=== PATIENT | male | born 1990 | race Caucasian/White ===

== ENCOUNTER 2017-01-02 17:25 | Emergency (ER) | payer BC, OTHER ==
[2017-01-02 18:11] VITALS: BP 127/72
[2017-01-02] MEDS ORDERED: Ibuprofen TAB* 400 MG PO ONE (19:38)
--- NOTE | 2017-01-02 20:06 | UC ---
Shoulder Pain HPI - HPI Summary HPI Summary: The patient comes in today for: 1. Right shoulder pain: Onset: 4 hours ago. Palliative/provocative: Arm movement makes it worse. Quality: Ache Region: Right superior, posterior shoulder, superior to the scapula. Severity: 6/10 Time: Constant. 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 He jumped to block the ball, and another player "knocked the feet from out under me" and he fell laterally striking his right posterior/lateral shoulder. He states that it hurt when he fell, but it hurts more now. Previous treatment: None. Numbness: None. 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 and his arms got tired "being just held out in front of me." * - History of Current Complaint Chief Complaint: UCUpperExtremity Stated Complaint: SHOULDER INJURY Time Seen by Provider: 01/02/17 19:37 Hx Obtained From: Patient - Allergies/Home Medications Allergies/Adverse Reactions: Allergies Allergy/AdvReac Type Severity Reaction Status Date / Time No Known Allergies Allergy Verified 01/02/17 18:11 PMH/Surg Hx/FS Hx/Imm Hx Previously Healthy: Yes Endocrine History Of: Denies: Diabetes, Thyroid Disease, Hyperthyroidism, Hypothyroidism, Dyslipidemia Cardiovascular History Of: Denies: Cardiac Disorders, Hypertension, Pacemaker/ICD, Myocardial Infarction , Congestive Heart Failure, Atrial Fibrillation, Deep Vein Thrombosis, Bleeding Disorders Respiratory History Of: Reports: Asthma - Only as a child. Denies: COPD, Bronchitis, Pneumonia, Pulmonary Embolism GI/ History Of: Denies: Gastroesophageal Reflux, Ulcer, Gastrointestinal Bleed, Gall Bladder Disease, Kidney Stones, Diverticulitis, Renal Disease, Urosepsis Neurological History Of: Denies: TIA, CVA, Dementia, Seizures, Migraine Psychological History Of: Denies: Anxiety, Depression, Bipolar Disorder, Schizophrenia, Post Traumatic Stress Disorder Cancer History Of: Denies: Lung Cancer, Colorectal Cancer, Breast Cancer, Prostate Cancer, Cervical Cancer Other History Of: Negative For: HIV, Hepatitis B, Hepatitis C, Anticoagulant Therapy - Surgical History Surgical History: None - Family History Known Family History: Positive: Diabetes Negative: Unknown, Cardiac Disease, Hypertension - Social History Occupation: Employed Full-time Alcohol Use: Rare Substance Use Type: None Smoking Status (MU): Never Smoked Tobacco Have You Smoked in the Last Year: No - Immunization History Most Recent Influenza Vaccination: Not the Season Review of Systems Constitutional: Negative Skin: Negative Eyes: Negative ENT: Negative Respiratory: Negative Cardiovascular: Negative Gastrointestinal: Negative Genitourinary: Negative Musculoskeletal: Arthralgia, Myalgia All Other Systems Reviewed And Are Negative: Yes Physical Exam Triage Information Reviewed: Yes Appearance: Well-Appearing, No Pain Distress, Well-Nourished Vital Signs: Initial Vital Signs Temp 98.7 F 01/02/17 18:07 Pulse 78 01/02/17 18:07 Resp 20 01/02/17 18:07 BP 127/72 01/02/17 18:07 Pulse Ox 100 01/02/17 18:07 Vital Signs Reviewed: Yes Eyes: Positive: Conjunctiva Clear. Negative: Discharge ENT: Positive: Hearing grossly normal. Negative: Pharyngeal erythema, Nasal congestion, Nasal drainage, TM bulging, TM dull, TM red, Tonsillar swelling, Tonsillar exudate Dental: Negative: Gross Decay/Caries @, Dental Fracture @ Neck: Positive: Supple, Nontender, No Lymphadenopathy. Negative: Nuchal Rigidity Respiratory: Positive: Lungs clear, No respiratory distress, No accessory muscle use. Negative: Crackles, Wheezing Cardiovascular: Positive: RRR, No Murmur Abdomen Description: Positive: Nontender, No Organomegaly, Soft. Negative: Distended, Guarding Musculoskeletal: Positive: Strength Intact, No Edema, Other: - Right shoulder: There is no ecchymosis. There is tenderness to palpation of the supraspinatus posteriorly. There is tenderness to the anterior AC joint. There is reduction in the abdution laterally and anteriorly. Muscular strength is normal in hand tactical debriefer officer, and with "OK" sign of the thumbs, pincher grasp, finger grasp and hand tactical debriefer officer manuvers. Neurological: Positive: Alert, Muscle Tone Normal Psychological: Positive: Age Appropriate Behavior, Consolable Skin: Negative: rashes, breakdown Diagnostics - Radiology No standard instances Xray Interpretation: No Acute Changes Radiology Interpretation Completed By: Radiologist Shoulder Course/Dx - Differential Dx/Diagnosis Provider Diagnoses: Right shoulder contusion. Right shoulder strain. Discharge - Discharge Plan Condition: Stable Disposition: HOME Patient Education Materials: Contusion in Adults (ED), Shoulder Sprain (ED) Referrals: [facility] [Outside] No Primary Care Phys,NOPCP [Primary Care Provider] - 1 Week (Please see your primary care provider in about three days to see how well you are doing. If you don't have a primary care provider, please contact the physician referral service. If you can't get in timely, please you may come back to see us until you can. If you get worse, please be seen sooner by us or the ER.)
--- NOTE | 2017-01-02 20:14 | RAD ---
INDICATION: Right shoulder pain COMPARISON: None TECHNIQUE: Routine frontal and Y views were obtained. FINDINGS: The bony structures, joint spaces, and soft tissues are normal for age. IMPRESSION: NEGATIVE EXAMINATION
== END 2017-01-02 20:42 | disposition home or self-care (01) ==
LOC: UCEAST 17:25
DX: M25.511 Pain in right shoulder (principal); S43.401A Unspecified sprain of right shoulder joint, initial encounter; W03.XXXA Other fall on same level due to collision with another person, initial encounter; Y93.67 Activity, basketball; Y92.39 Other specified sports and athletic area as the place of occurrence of the external cause
CPT/HCPCS: 99212; A9270-GY; G0463

== ENCOUNTER 2017-01-04 12:27 | Emergency (ER) | payer SELFPAY ==
[2017-01-04 12:48] VITALS: BP 129/70
--- NOTE | 2017-01-04 13:01 | UC ---
Shoulder Pain HPI - HPI Summary HPI Summary: Fell on R shoulder 2 days ago at work, was taken out but now wants to return to work. Is feeling much better and can lift arm over his head. - History of Current Complaint Chief Complaint: UCUpperExtremity Stated Complaint: RECHECK SHOULDER INJURY Time Seen by Provider: 01/04/17 12:51 Hx Obtained From: Patient Onset/Duration: Sudden Onset Timing: Constant Severity Initially: Moderate Severity Currently: Mild Character: Aching Aggravating Factor(s): Movement, Lifting Alleviating Factor(s): Rest Related History: Occupational Injury - Allergies/Home Medications Allergies/Adverse Reactions: Allergies Allergy/AdvReac Type Severity Reaction Status Date / Time No Known Allergies Allergy Verified 01/02/17 18:11 PMH/Surg Hx/FS Hx/Imm Hx Endocrine History Of: Denies: Diabetes, Thyroid Disease, Hyperthyroidism, Hypothyroidism, Dyslipidemia Cardiovascular History Of: Denies: Cardiac Disorders, Hypertension, Pacemaker/ICD, Myocardial Infarction , Congestive Heart Failure, Atrial Fibrillation, Deep Vein Thrombosis, Bleeding Disorders Respiratory History Of: Reports: Asthma - Only as a child. Denies: COPD, Bronchitis, Pneumonia, Pulmonary Embolism GI/ History Of: Denies: Gastroesophageal Reflux, Ulcer, Gastrointestinal Bleed, Gall Bladder Disease, Kidney Stones, Diverticulitis, Renal Disease, Urosepsis Neurological History Of: Denies: TIA, CVA, Dementia, Seizures, Migraine Psychological History Of: Denies: Anxiety, Depression, Bipolar Disorder, Schizophrenia, Post Traumatic Stress Disorder Cancer History Of: Denies: Lung Cancer, Colorectal Cancer, Breast Cancer, Prostate Cancer, Cervical Cancer Other History Of: Negative For: HIV, Hepatitis B, Hepatitis C, Anticoagulant Therapy - Surgical History Surgical History: None Surgery Procedure, Year, and Place: none - Family History Known Family History: Positive: Diabetes Negative: Unknown, Cardiac Disease, Hypertension - Social History Occupation: Employed Part-time Alcohol Use: Rare Substance Use Type: None Smoking Status (MU): Never Smoked Tobacco Have You Smoked in the Last Year: No - Immunization History Most Recent Influenza Vaccination: Not the 2014/2015 Season Review of Systems Constitutional: Negative Skin: Negative Eyes: Negative ENT: Negative Respiratory: Negative Cardiovascular: Negative Gastrointestinal: Negative Genitourinary: Negative Motor: Negative Neurovascular: Negative Musculoskeletal: Arthralgia Neurological: Negative Psychological: Negative All Other Systems Reviewed And Are Negative: Yes Physical Exam Triage Information Reviewed: Yes Appearance: Well-Appearing, No Pain Distress, Well-Nourished Vital Signs: Initial Vital Signs Temp 97.8 F 01/04/17 12:43 Pulse 73 01/04/17 12:43 Resp 16 01/04/17 12:43 BP 129/70 01/04/17 12:43 Pulse Ox 100 01/04/17 12:43 Vital Signs Reviewed: Yes Eye Exam: Normal Eyes: Positive: Conjunctiva Clear ENT Exam: Normal ENT: Positive: Normal ENT inspection, Hearing grossly normal, Pharynx normal, TMs normal Dental Exam: Normal Neck exam: Normal Neck: Positive: Supple, Nontender, No Lymphadenopathy Respiratory Exam: Normal Respiratory: Positive: Chest non-tender, Lungs clear, Normal breath sounds, No respiratory distress, No accessory muscle use Cardiovascular Exam: Normal Cardiovascular: Positive: RRR, No Murmur Musculoskeletal Exam: Normal Musculoskeletal: Positive: Strength Intact, ROM Intact Neurological Exam: Normal Neurological: Positive: Alert Psychological Exam: Normal Skin Exam: Normal Shoulder Course/Dx - Differential Dx/Diagnosis Provider Diagnoses: R shoulder strain resolving Discharge - Discharge Plan Condition: Stable Disposition: HOME Patient Education Materials: Shoulder Sprain (ED) Forms: *Work Release Referrals: No Primary Care Phys,NOPCP [Primary Care Provider] - Additional Instructions: Call or return if symptoms worsen.
== END 2017-01-04 13:06 | disposition home or self-care (01) ==
LOC: UCEAST 12:27
DX: S43.401A Unspecified sprain of right shoulder joint, initial encounter (principal); W19.XXXA Unspecified fall, initial encounter; Y92.9 Unspecified place or not applicable; R03.0 Elevated blood-pressure reading, without diagnosis of hypertension
CPT/HCPCS: 99211; G0463

== ENCOUNTER 2017-11-27 15:03 | Emergency (ER) | payer SELFPAY ==
[2017-11-27 16:04] VITALS: BP 132/77
--- NOTE | 2017-11-27 17:24 | UC ---
Laceration HPI - HPI Summary HPI Summary: Accidentally collided with another player in basketball today, lac below R eyebrow. Denies vomiting, dizziness, or LOC. Pt would like sutures to the wound. - History Of Current Complaint Chief Complaint: UCLaceration Stated Complaint: EYELID LAC Hx Obtained From: Patient Laceration Location: Face Mechanism Of Injury: Blunt Trauma Onset/Duration: Sudden Onset Severity: Mild Aggravating Factors: Nothing - Allergies/Home Medications Allergies/Adverse Reactions: Allergies Allergy/AdvReac Type Severity Reaction Status Date / Time No Known Allergies Allergy Verified 11/27/17 16:04 Home Medications: Home Medications NK [No Home Medications Reported] 11/27/17 [History Confirmed 11/27/17] PMH/Surg Hx/FS Hx/Imm Hx Previously Healthy: Yes Other History Of: Negative For: HIV, Hepatitis B, Hepatitis C, Anticoagulant Therapy - Surgical History Surgical History: None Surgery Procedure, Year, and Place: none - Family History Known Family History: Positive: Diabetes Negative: Unknown, Cardiac Disease, Hypertension - Social History Alcohol Use: Rare Substance Use Type: None Smoking Status (MU): Never Smoked Tobacco Have You Smoked in the Last Year: No - Immunization History Most Recent Influenza Vaccination: Not the Season Review of Systems Constitutional: Negative Skin: Other - R eyebrow lac Eyes: Negative ENT: Negative Respiratory: Negative Cardiovascular: Negative Gastrointestinal: Negative Genitourinary: Negative Motor: Negative Neurovascular: Negative Musculoskeletal: Negative Neurological: Negative Psychological: Negative Is Patient Immunocompromised?: No All Other Systems Reviewed And Are Negative: Yes Physical Exam Triage Information Reviewed: Yes Appearance: Well-Appearing, No Pain Distress, Well-Nourished Vital Signs: Initial Vital Signs Temp 98.1 F 11/27/17 16:01 Pulse 54 11/27/17 16:01 Resp 18 11/27/17 16:01 BP 132/77 11/27/17 16:01 Pulse Ox 98 11/27/17 16:01 Vital Signs Reviewed: Yes Eye Exam: Normal, Other - PERRL Eyes: Positive: Conjunctiva Clear ENT Exam: Normal ENT: Positive: Normal ENT inspection, Hearing grossly normal, Pharynx normal, TMs normal. Negative: TM bulging, TM dull, TM red Dental Exam: Normal Neck exam: Normal Neck: Positive: Supple, Nontender, No Lymphadenopathy Respiratory Exam: Normal Respiratory: Positive: Chest non-tender, Lungs clear, Normal breath sounds, No respiratory distress, No accessory muscle use Cardiovascular Exam: Normal Cardiovascular: Positive: RRR, No Murmur Musculoskeletal Exam: Normal Musculoskeletal: Positive: Strength Intact, ROM Intact Neurological Exam: Normal Neurological: Positive: Alert Psychological Exam: Normal Skin Exam: Other - 2cm lac to R eyebrow Laceration Repair - Laceration Repair 1 Description: Linear Laceration Size After Repair: Length (cm) - 2, Width (mm) - 0, Depth (mm) - 0 Modified For Repair: No Anesthesia Used: 2.0% Lido - 1mL Cleansing Completed Via Routine Prep: Yes Irrigation With Pressure Irrigation Device: Yes Closure Material: Sutures Closure Method: Single Layer Suture Of: Skin Suture Type: Nylon - #4 Laceration Course/Dx - Differential Dx - Laceration/Wound Provider Diagnoses: R eyebrow laceration repair Discharge - Discharge Plan Condition: Stable Disposition: HOME Patient Education Materials: Facial Laceration (ED) Forms: *Work Release Referrals: No Primary Care Phys,NOPCP [Primary Care Provider] - Additional Instructions: Return for suture removal in 5-6 days. Come back sooner if you suspect a problem.
[2017-11-27] MEDS ORDERED: Lidocaine 2% EPI 1:200000 MPF* 20 ML VIAL INJ ONE (17:28)
[2017-11-27] MEDS ORDERED: Lidocaine 2% PF * 5 ML VIAL ONE (17:38)
== END 2017-11-27 18:01 | disposition home or self-care (01) ==
LOC: UCEAST 15:03
DX: S01.111A Laceration without foreign body of right eyelid and periocular area, initial encounter (principal); W51.XXXA Accidental striking against or bumped into by another person, initial encounter; Y93.67 Activity, basketball; Y92.39 Other specified sports and athletic area as the place of occurrence of the external cause
CPT/HCPCS: 12011; 99211; G0463

== ENCOUNTER 2019-04-26 15:18 | Emergency (ER) | payer BC ==
--- OUTSIDE RECORDS SUMMARY | 2019-04-26 15:27 | XMS REPORT | Continuity of Care Document ---
:1990 External Reference #:[id number] Author Name Yevgeniy Herrera D.O. Address [address] [facility] [place] [address] Care Team Providers Name Role Phone HCP/LW on file Primary Care Physician Unavailable Payers Date Identification Numbers Payment Provider Subscriber Effective: Policy Number: [id number] [employer] Ind/Ppo/Hmo/Pos Remigio Barrett 2018 PayID: [id number] [address] [address] [place] [address] Family History Date Family Member(s) Observation Comments General Alcoholism General Asthma General Diabetes, Nos General Emotional Problems General Mental Illness Social History Type Date Description Comments Sex Unknown Education College BS Marital Status Single Lives With Girlfriend Diet Healthy, Well Balanced 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 Working Hand Dominance Right-handed Abuse No history of abuse Tobacco Use Start: Unknown Former Cigarette End: Smoker ETOH Use Never used alcohol Stopped using as contributed to "dark thoughts." Tobacco Use Start: Unknown Patient is a former End: Unknown smoker Recreational Drug Use Current Drug User infreq use of marjuana Smoking Status Reviewed: 10/26/18 Patient is a former smoker Enjoy Exercising Enjoys exercising Exercise Type/Frequency Exercises regularly Variety of sports, reports freq getting a variety of bumps and bruises Sun Exposure Does not use sunscreen Seat Belt/Car Seat always uses seat belt Guns in Home Yes, Locked Up Currently Active Patient is currently sexually active Allergies, Adverse Reactions, Alerts Description No Known Drug Allergies Medications Active Medications SIG Qnty Indications Ordering Provider Date Amphetamine-Dextroamp 2 by mouth in 90tabs F90.0 Freddy Larios, 2018 hetamine the morning, M.D. 5mg Tablets take before work, and 1 mid to later afternoon, for focus/concentrat ion Alprazolam XR 1 tab every 14tabs F33.1 Freddy Larios 10/26/2018 0.5mg night at M.DJasmin Tablets ER 24HR bedtime, prn History Medications Amphetamine-[facility]extroamphetamine 1 tab po bid [facility] - 7.5mg Tablets for adhd Sharona Hayes 01/29/2019 Sertraline HCL 1 tablet daily 60tabs F33.1 Ric, 10/23/2018 - 25mg Tablets in the Sharona Hayes 10/26/2018 morning, for 5 days then 2 per day for anxiety and depression No Active Medications Unknown 09/11/2018 - 09/11/2018 Bupropion HCL ER (SR) start 1 by 60tabs F33.1 Ric, 09/11/2018 - 100mg Tablets ER 12HR mouth in the Sharona Hayes 10/27/2018 mid to later afternoon. Immunizations CPT Code Status Date Vaccine Lot # [id number] Refused 09/11/2018 Influenza,Unspecified Vital Signs Date Vital Result Comment 01/29/2019 1:46pm BP Systolic 128 mmHg BP Diastolic 80 mmHg Weight 177.00 lb 11/20/2018 10:37am BP Systolic 114 mmHg BP Diastolic 68 mmHg Weight 176.00 lb 10/26/2018 1:53pm BP Systolic 142 mmHg BP Diastolic 86 mmHg 10/23/2018 10:30am BP Systolic 112 mmHg BP Diastolic 68 mmHg Weight 176.00 lb 09/25/2018 9:02am BP Systolic 126 mmHg BP Diastolic 60 mmHg Weight 180.00 lb w/shoes 09/11/2018 9:39am BP Systolic 122 mmHg BP Diastolic 70 mmHg Weight 177.50 lb 07/31/2018 11:17am BP Systolic 108 mmHg BP Diastolic 70 mmHg Heart Rate 64 /min O2 % BldC Oximetry 97 % Height 74.25 inches 6'2.25" Weight 172.00 lb BMI (Body Mass Index) 21.9 kg/m2 Results Test Date Facility Test Result H/L Range Note [facility] Negative 1, 2 finding [phone] Pylori Antigen- Stool CBC Auto Diff 07/31/2018 [facility] White Blood 6.1 10^3/uL N 3.5- 10.8 [phone] Count Red Blood Count 5.04 10^6/uL N 4.00-5.40 Hemoglobin 15.0 g/dL N 14.0-18.0 Hematocrit 44 % N 42-52 Mean Corpuscular Volume 88 fL N 80-94 Mean Corpuscular Hemoglobin 30 pg N 27-31 Mean Corpuscular HGB Conc 34 g/dL N 31-36 Red Cell Distribution Width 13 % N 10.5-15 Platelet Count 232 10^3/uL N 150-450 Mean Platelet Volume 8.0 um3 N 7.4-10.4 Abs Neutrophils 3.5 10^3/uL N 1.5-7.7 Abs Lymphocytes 1.9 10^3/uL N 1.0-4.8 Abs Monocytes 0.5 10^3/uL N 0-0.8 Abs Eosinophils 0.2 10^3/uL N 0-0.6 Abs Basophils 0 10^3/uL N 0-0.2 Abs Nucleated RBC 0 10^3/uL Granulocyte % 56.9 % N 38-83 Lymphocyte % 31.9 % N 25-47 Monocyte % 7.9 % High 0-7 Eosinophil % 2.9 % N 0-6 Basophil % 0.4 % N 0-2 Nucleated Red Blood Cells % 0.1 Comp Metabolic Panel 07/31/2018 [facility] Sodium 139 mmol/L N 135- 145 [phone] Chloride 104 mmol/L N 101-111 Co2 Carbon Dioxide 31 mmol/L N 22-32 Glucose 89 mg/dL N 70-100 Blood Urea Nitrogen 13 mg/dL N 6-24 Creatinine 0.89 mg/dL N 0.67-1.17 BUN/Creatinine Ratio 14.6 N 8-20 Calcium 10.0 mg/dL N 8.6-10.3 Total Protein 7.1 g/dL N 6.4-8.9 Albumin 4.9 g/dL N 3.2-5.2 Globulin 2.2 g/dL N 2-4 Albumin/Globulin Ratio 2.2 N 1-3 Total Bilirubin 0.50 mg/dL N 0.2-1.0 Alkaline Phosphatase 75 U/L N 34-104 Alt 27 U/L N 7-52 Egfr Non- 103.3 >60 Egfr 125.0 >60 3 Potassium TNP mmol/L 3.5-5.0 4 Anion Gap 4 mmol/L N 2-11 Ast TNP U/L 13-39 5 Laboratory test finding 07/31/2018 [facility] T3 Free 4.30 pg/mL High 2.5-3.9 [phone] Free T4 (Free Thyroxine) 0.88 ng/dL N 0.61-1.12 TSH (Thyroid Stim Horm) 1.24 mcIU/mL N 0.34-5.60 Vitamin B12 686 pg/mL N 180-914 6 Laboratory test finding 07/31/2018 In House Hemoglobin 13.9 Glucose 102 Hemoglobin A1c 5.1 Ua Inhouse 07/31/2018 In House Ua Glucose - 7 Ua Bilirubin - Ua Ketones - Ua Specific Taylor 1.020 Ua Blood - Ua PH 6.0 Ua Protein - Ua Urobilinogen - Ua Nitrite - Ua Leukocytes tr 1 [id number] 2 Test Performed by: [place] [address] 3 Because ethnic data is not always readily available, this report includes an eGFR for both -Americans and non- Americans. The National Kidney Disease Education Program (NKDEP) does not endorse the use of the MDRD equation for patients that are not between the ages of 18 and 70, are , have extremes of body size, muscle mass, or nutritional status, or are non- or non-. According to the National Kidney Foundation, irrespective of diagnosis, the stage of the disease is based on the level of kidney function: Stage Description GFR(mL/min/1.73 m(2)) 1 Kidney damage with normal or decreased GFR 90 2 Kidney damage with mild decrease in GFR 60-89 3 Moderate decrease in GFR 30-59 4 Severe decrease in GFR 15-29 5 Kidney failure <15 (or dialysis) 4 Specimen Hemolyzed. Result may not be valid. Unable to report test result due to hemolysis. 5 Unable to report test result due to hemolysis. 6 Normal Range 180 to 914 Indeterminate Range 145 to 180 Deficient Range <145 7 void, clear, gold Procedures Date Code Description Status 10/26/2018 27141 Electrocardiogram Complete Completed 07/31/2018 91836 Electrocardiogram Complete Completed 07/31/2018 57636 Audiometry Screen, Pure Tone, Air Completed Encounters Type Date Location Provider Dx Diagnosis Office Visit 01/29/2019 Main Office Caty Raygoza F33.1 Major depressive 1:40p disorder, recurrent, moderate F90.0 Attn-defct hyperactivity disorder, predom inattentive type F43.23 Adjustment disorder with mixed anxiety and depressed mood Office Visit 11/20/2018 10:20a Main Office Lona Vazquez F43.23 Adjustment disorder P.A. with mixed anxiety and depressed mood F90.0 Attn-defct hyperactivity disorder, predom inattentive type Office Visit 10/26/2018 1:40p Main Office Lona Vazquez, R42 Dizziness and P.A. giddiness R20.2 Paresthesia of skin R53.1 Weakness F33.1 Major depressive disorder, recurrent, moderate R09.89 Oth symptoms and signs involving the circ and resp systems R11.2 Nausea with vomiting, unspecified R03.0 Elevated blood-pressure reading, w/o diagnosis of htn Office Visit 10/23/2018 10:20a Main Office Lona Vazquez F33.1 Major depressive P.A. disorder, recurrent, moderate Z87.820 Personal history of traumatic brain injury Office Visit 09/25/2018 9:00a Main Office Lona Vazquez F33.1 Major depressive P.A. disorder, recurrent, moderate Office Visit 09/11/2018 9:00a Main Office Lona Vazquez F33.1 Major depressive P.A. disorder, recurrent, moderate Plan of Treatment 01/29/2019 - Caty RaygozaF33.1 Major depressive disorder, recurrent, moderateFollow up:will be seeing Breanna (?)JOVANI, for neurosensory testing as you plan. Contact [facility] (handed referral letter to pt for info) follow-up with counseling as she recommends need to consider psychiatry which she might recommend. (Pt taking one step at a time.) completed papers for intermittent leave as [id number] Attention-deficit hyperactivity disorder, predominantly inatNew Medication:Amphetamine- Dextroamphetamine 5 mg - 2 by mouth in the morning, take before work, and 1 mid to laterafternoon, for focus/concentrationComments:this seems to be an underlying element to everything, not sure whether past head injury plays role or not.F43.23 Adjustment disorder with mixed anxiety and depressed mood
[2019-04-26 15:53] VITALS: BP 116/63
--- NOTE | 2019-04-26 16:26 | ED ---
Back Pain - HPI Summary HPI Summary: 28 yr old male with low back pain. Onset a couple of months ago, and it feels like pressure. He at times has had some tingling in his feet. he complains of incontinence of urine several times over the past month, but with increasing occurrences of this. He denies fever, chills. He denies scrotal pain. he has had a 20 pound unexplained weight loss. he denies focal weakness or numbness in his legs. He states he has long standing enlarged veins in the left side of his scrotum. - History of Current Complaint Chief Complaint: UCGU Stated Complaint: LOW BCK PAIN/BLADDER CONCERN Time Seen by Provider: 04/26/19 16:00 Pain Intensity: 7 - Allergies/Home Medications Allergies/Adverse Reactions: Allergies Allergy/AdvReac Type Severity Reaction Status Date / Time No Known Allergies Allergy Verified 04/26/19 15:54 PMH/Surg Hx/FS Hx/Imm Hx Endocrine/Hematology History: Denies: Hx Anticoagulant Therapy, Hx Diabetes, Hx Thyroid Disease Cardiovascular History: Denies: Hx Congestive Heart Failure, Hx Deep Vein Thrombosis, Hx Hypertension , Hx Myocardial Infarction, Hx Pacemaker/ICD Respiratory History: Reports: Hx Asthma - Only as a child. Denies: Hx Chronic Obstructive Pulmonary Disease (COPD), Hx Lung Cancer, Hx Pneumonia, Hx Pulmonary Embolism GI History: Denies: Hx Gall Bladder Disease, Hx Gastrointestinal Bleed, Hx Ulcer, Hx Urosepsis History: Denies: Hx Kidney Stones, Hx Renal Disease Sensory History: Denies: Hx Contacts or Glasses, Hx Hearing Aid Opthamlomology History: Denies: Hx Contacts or Glasses Neurological History: Denies: Hx Dementia, Hx Migraine, Hx Seizures, Hx Transient Ischemic Attacks (TIA) Psychiatric History: Denies: Hx Anxiety, Hx Eating Disorder, Hx Depression, Hx Panic Disorder, Hx Schizophrenia, Hx Bipolar Disorder, Hx of Violent Episodes Against Others - Surgical History Surgery Procedure, Year, and Place: none Infectious Disease History: No Infectious Disease History: Denies: Traveled Outside the US in Last 30 Days - Family History Known Family History: Positive: Diabetes Negative: Unknown, Cardiac Disease, Hypertension - Social History Alcohol Use: None Substance Use Type: Reports: Marijuana Smoking Status (MU): Never Smoked Tobacco Have You Smoked in the Last Year: No Review of Systems Constitutional: Negative Positive: incontinence Positive: Other - back pain All Other Systems Reviewed And Are Negative: Yes Physical Exam Triage Information Reviewed: Yes Vital Signs On Initial Exam: Initial Vitals Temp Pulse Resp BP Pulse Ox 97.9 F 67 16 116/63 99 04/26/19 15:46 04/26/19 15:46 04/26/19 15:46 04/26/19 15:46 04/26/19 15:46 Vital Signs Reviewed: Yes Appearance: Positive: Well-Appearing, No Pain Distress Skin: Positive: Warm, Skin Color Reflects Adequate Perfusion Head/Face: Positive: Normal Head/Face Inspection Eyes: Positive: EOMI, ALONSO ENT: Positive: Normal ENT inspection Neck: Positive: Nontender Respiratory/Lung Sounds: Positive: Clear to Auscultation, Breath Sounds Present Cardiovascular: Positive: RRR. Negative: Murmur Abdomen Description: Positive: Nontender, Soft, Other: - Rectal exam: Normal TONE. Prostate non tender. Negative: CVA Tenderness (R), CVA Tenderness (L) Male Genital Exam: Positive: No Hernia, Other - he has enlarged venous plexus around left spermatic chord. No tenderness or obvious mass to the testicles.. Negative: Inguinal Tenderness, Scrotum Tenderness (R), Scrotum Tenderness (L), Testicular Tenderness (R), Testicular Tenderness (L), Urethral Discharge Musculoskeletal: Positive: Strength/ROM Intact Neurological: Positive: Sensory/Motor Intact, Alert, Oriented to Person Place, Time, CN Intact II-III, Normal Gait, Speech Normal Psychiatric: Positive: Normal - Natanael Coma Scale Best Eye Response: 4 - Spontaneous Best Motor Response: 6 - Obeys Commands Best Verbal Response: 5 - Oriented Coma Scale Total: 15 Diagnostics - Vital Signs Vital Signs Temp Pulse Resp BP Pulse Ox 04/26/19 15:46 97.9 F 67 16 116/63 99 - Laboratory Lab Results: Lab Results 04/26/19 Range/Units 16:06 POC Urine Color Yellow POC Urine Clarity Clear POC Urine pH 6.0 (5-9) POC Ur Specif [place] 1.025 (1.010-1.030) POC Urine Protein Negative (Negative) POC Ur Glucose (UA) Negative (Negative) POC Urine Ketones Negative (Negative) POC Urine Blood Negative (Negative) POC Urine Nitrite Negative (Negative) POC Urine Bilirubin Negative (Negative) POC Urine Urobilinogen 1.0 (Negative) POC U Leukocyte Esteras Negative (Negative) Lab Statement: Any lab studies that have been ordered have been reviewed, and results considered in the medical decision making process. Back Pain Course/Dx - Course Course Of Treatment: 28 yr old with low back pain and episodes of urinary incontinence. He requests to go to [facility] for further work up. Will need labs and MRI for further work up. - Diagnoses Provider Diagnoses: Low back pain, Urinary incontinence Discharge - Sign-Out/Discharge Documenting (check all that apply): Patient Departure All imaging exams completed and their final reports reviewed: No Studies - Discharge Plan Condition: Good Disposition: HOME-RECOMMEND TO ED Patient Education Materials: Acute Low Back Pain (ED) Referrals: Lona Vazquez PA [Primary Care Provider] - Additional Instructions: You need to go to the [facility] for further work up. You have been offered an ambulance but state your father will drive you. Do not delay. - Billing Disposition and Condition Condition: GOOD Disposition: Home-Recommend to ED
[2019-04-30 13:06] LABS: Neisseria gonorrhoeae (GC) RNA Negative (Negative)
== END 2019-04-26 16:27 | disposition home health service (06) ==
LOC: UCCORT 15:18
DX: M54.5 Low back pain (principal); R32 Unspecified urinary incontinence
CPT/HCPCS: 81003; 87491; 87591; 99212; G0463

== ENCOUNTER 2019-04-26 17:56 | Emergency (ER) | payer BC ==
[2019-04-26 19:02] LABS: ABS Eosinophils 0.1 10^3/ul (0-0.6); ABS Lymphocytes 1.6 10^3/ul (1.0-4.8); ABS Monocytes 0.4 10^3/ul (0-0.8); ABS Neutrophils 3.4 10^3/ul (1.5-7.7); Eosinophil % 1.7 %; Hematocrit 39 % (42-52); Hemoglobin 13.4 g/dL (14.0-18.0); Lymphocyte % 29.2 %; Mean Corpuscular HGB Conc 35 g/dL (31-36); Mean Corpuscular Hemoglobin 30 pg (27-31); Mean Corpuscular Volume 88 fL (80-94); Mean Platelet Volume 7.8 fL (7.4-10.4); Nucleated Red Blood Cells % 0.1; Platelet Count 190 10^3/uL (150-450); Red Blood Count 4.43 10^6 /uL (4.18-5.48); Red Cell Distribution Width 13 % (10-15); White Blood Count 5.5 10^3/uL (3.5-10.8)
[2019-04-26 19:13] LABS: ALT 17 U/L (7-52); AST 16 U/L (13-39); Albumin 4.3 g/dL (3.2-5.2); Alkaline Phosphatase 59 U/L (34-104); Anion Gap 4 mmol/L (2-11); BUN/Creatinine Ratio 20.2 (8-20); Blood Urea Nitrogen 20 mg/dL (6-24); C Reactive Protein < 1.00 mg/L (<8.01); CO2 Carbon Dioxide 29 mmol/L (22-32); Calcium 9.3 mg/dL (8.6-10.3); Chloride 105 mmol/L (101-111); EGFR African American 110.6 (>60); EGFR Non-African American 91.4 (>60); Globulin 2.2 g/dL (2-4); Glucose 102 mg/dL (70-100); Potassium 4.4 mmol/L (3.5-5.0); Sodium 138 mmol/L (135-145); Total Protein 6.5 g/dL (6.4-8.9)
--- NOTE | 2019-04-26 19:29 | ED ---
Back Pain - HPI Summary HPI Summary: 28 year male presents with back pain occasionally for the past month. He states occasionally he gets these urinary incontinence. He had an episode in Nov and then last month of the same thing. He states that yesterday he started becoming incontinent. He states that he feels he is retaining urine. He states he did defecate on himself once today. He admits occasional numbness and tingling into his tailbone. he notes occasional pain on his legs. No weakness. No fevers. No history IV drug use. Has no medical conditions. He also admits to shortness of breath and cough. No chest pain. No abdominal pain. No nausea vomiting. No dysuria. No hematuria. No fevers. - History of Current Complaint Chief Complaint: EDFlankPain Stated Complaint: LOWER BACK PAIN, FROM CC PER PT Time Seen by Provider: 04/26/19 18:43 Pain Intensity: 2 - Allergies/Home Medications Allergies/Adverse Reactions: Allergies Allergy/AdvReac Type Severity Reaction Status Date / Time No Known Allergies Allergy Verified 04/26/19 18:22 PMH/Surg Hx/FS Hx/Imm Hx Endocrine/Hematology History: Denies: Hx Anticoagulant Therapy, Hx Diabetes, Hx Thyroid Disease Cardiovascular History: Denies: Hx Congestive Heart Failure, Hx Deep Vein Thrombosis, Hx Hypertension , Hx Myocardial Infarction, Hx Pacemaker/ICD Respiratory History: Reports: Hx Asthma - Only as a child. Denies: Hx Chronic Obstructive Pulmonary Disease (COPD), Hx Lung Cancer, Hx Pneumonia, Hx Pulmonary Embolism GI History: Denies: Hx Gall Bladder Disease, Hx Gastrointestinal Bleed, Hx Ulcer, Hx Urosepsis History: Denies: Hx Kidney Stones, Hx Renal Disease Sensory History: Denies: Hx Contacts or Glasses, Hx Hearing Aid Opthamlomology History: Denies: Hx Contacts or Glasses Neurological History: Denies: Hx Dementia, Hx Migraine, Hx Seizures, Hx Transient Ischemic Attacks (TIA) Psychiatric History: Denies: Hx Anxiety, Hx Eating Disorder, Hx Depression, Hx Panic Disorder, Hx Schizophrenia, Hx Bipolar Disorder, Hx of Violent Episodes Against Others - Surgical History Surgery Procedure, Year, and Place: none Infectious Disease History: No Infectious Disease History: Denies: Traveled Outside the US in Last 30 Days - Family History Known Family History: Positive: Diabetes Negative: Unknown, Cardiac Disease, Hypertension - Social History Alcohol Use: None Substance Use Type: Reports: Marijuana Smoking Status (MU): Never Smoked Tobacco Have You Smoked in the Last Year: No Review of Systems Negative: Fever Negative: Chest Pain Negative: Shortness Of Breath Positive: incontinence Positive: Myalgia - back pain All Other Systems Reviewed And Are Negative: Yes Physical Exam Triage Information Reviewed: Yes Vital Signs On Initial Exam: Initial Vitals Temp Pulse Resp BP Pulse Ox 98.9 F 72 16 145/88 100 04/26/19 18:13 04/26/19 18:13 04/26/19 18:13 04/26/19 18:13 04/26/19 18:13 Vital Signs Reviewed: Yes Appearance: Positive: Well-Appearing Skin: Positive: Warm, Dry Head/Face: Positive: Normal Head/Face Inspection Eyes: Positive: Normal, Conjunctiva Clear ENT: Positive: Pharynx normal Respiratory/Lung Sounds: Positive: Clear to Auscultation, Breath Sounds Present Cardiovascular: Positive: Normal, RRR Abdomen Description: Positive: Nontender, Soft. Negative: CVA Tenderness (R), CVA Tenderness (L) Bowel Sounds: Positive: Present Musculoskeletal: Positive: Strength/ROM Intact - back, Other - pos SLR, good pulses, tenderness lower back Neurological: Positive: Normal Gait, Babinski Bilateral - normal Psychiatric: Positive: Normal Diagnostics - Vital Signs Vital Signs Temp Pulse Resp BP Pulse Ox 04/26/19 18:13 98.9 F 72 16 145/88 100 - Laboratory Lab Results: Lab Results 04/26/19 04/26/19 Range/Units 18:50 18:50 WBC 5.5 (3.5-10.8) 10^3/uL RBC 4.43 (4.18-5.48) 10^6 /uL Hgb 13.4 L (14.0-18.0) g/dL Hct 39 L (42-52) % MCV 88 (80-94) fL MCH 30 (27-31) pg MCHC 35 (31-36) g/dL RDW 13 (10-15) % Plt Count 190 (150-450) 10^3/uL MPV 7.8 (7.4-10.4) fL Neut % (Auto) 61.6 % Lymph % (Auto) 29.2 % [place] % (Auto) 7.0 % Eos % (Auto) 1.7 % Baso % (Auto) 0.5 % Absolute Neuts (auto) 3.4 (1.5-7.7) 10^3/ul Absolute Lymphs (auto) 1.6 (1.0-4.8) 10^3/ul Absolute Monos (auto) 0.4 (0-0.8) 10^3/ul Absolute Eos (auto) 0.1 (0-0.6) 10^3/ul Absolute Basos (auto) 0.0 (0-0.2) 10^3/ul Absolute Nucleated RBC 0.0 10^3/ul Nucleated RBC % 0.1 Sodium 138 (135-145) mmol/L Potassium 4.4 (3.5-5.0) mmol/L Chloride 105 (101-111) mmol/L Carbon Dioxide 29 (22-32) mmol/L Anion Gap 4 (2-11) mmol/L BUN 20 (6-24) mg/dL Creatinine 0.99 (0.67-1.17) mg/dL Est GFR ( Amer) 110.6 (>60) Est GFR (Non-Af Amer) 91.4 (>60) BUN/Creatinine Ratio 20.2 H (8-20) Glucose 102 H (70-100) mg/dL Calcium 9.3 (8.6-10.3) mg/dL Total Bilirubin 0.40 (0.2-1.0) mg/dL AST 16 (13-39) U/L ALT 17 (7-52) U/L Alkaline Phosphatase 59 (34-104) U/L C-Reactive Protein < 1.00 (<8.01) mg/L Total Protein 6.5 (6.4-8.9) g/dL Albumin 4.3 (3.2-5.2) g/dL Globulin 2.2 (2-4) g/dL Albumin/Globulin Ratio 2.0 (1-3) Result Diagrams: 04/26/19 18:50 04/26/19 18:50 Lab Statement: Any lab studies that have been ordered have been reviewed, and results considered in the medical decision making process. - Radiology chest Radiology Interpretation Completed By: ED Physician Summary of Radiographic Findings: no active disease - Additional Comments Diagnostic Additional Comments: MRI: IMPRESSION: 1. Mild retrolisthesis of L5 on S1. 2. Mild degenerative changes are visualized within the lumbar spine, as described above. 3. At L5-S1, there is a central protrusion with mild narrowing/tapering of the thecal sac. Mild left neural foraminal narrowing at this level. 4. Subcentimeter lesions are identified within the L2 and L5 vertebral bodies. These may represent atypical hemangiomas, although additional pathology cannot be excluded. A follow-up MRI is suggested. 5. Additional findings described above. Re-Evaluation - Re-Evaluation First Eval Re-Evaluation Time: 21:19 Change: Unchanged Comment: pain tolerable Back Pain Course/Dx - Course Course Of Treatment: 28 year male presents with back pain occasionally for the past month. He states occasionally he gets these urinary incontinence. He had an episode in Nov and then last month of the same thing. He states that yesterday he started becoming incontinent. He states that he feels he is retaining urine. He states he did defecate on himself once today. He admits occasional numbness and tingling into his tailbone. he notes occasional pain on his legs. No weakness. No fevers. No history IV drug use. Has no medical conditions. He also admits to shortness of breath and cough. No chest pain. No abdominal pain. No nausea vomiting. No dysuria. No hematuria. No fevers. On exam tenderness lower back. Positive straight leg raise. Normal Babinskis. lab work without significant abnormality. chest xray normal. Got MRI with urinary incontinence and saddle anesthesia. MRI shows no acute findings. discussed will add on muscle relaxer for pain. told follow up with primary and neurosurgery. if continues to have incontinence told to follow up with urology. may also need neurology in furture is symptoms continue. patient understand and agrees with plan. - Diagnoses Differential Diagnosis/HQI/PQRI: Positive: Cauda Equina Syndrome, Herniated Disc , Other - uti Provider Diagnoses: Back pain, Urinary incontinence Discharge - Sign-Out/Discharge Documenting (check all that apply): Patient Departure Patient Received Moderate/Deep Sedation with Procedure: No - Discharge Plan Condition: Good Disposition: HOME Prescriptions: Cyclobenzaprine TAB* [Flexeril 10 MG TAB*] 10 mg PO TID PRN #15 tab PRN Reason: Pain Patient Education Materials: Back Pain (ED) Referrals: Lona Vazquez PA [Primary Care Provider] - Angelo Harris MD [Medical Doctor] - Jeffrey Castañeda MD [Medical Doctor] - Maribell Carlos MD [Medical Doctor] - Additional Instructions: Take muscle relaxers three times a day Use ibuprofen or Tylenol for pain every 6 hours ice/heat area, move as much as possible Follow up with primary within 5 days follow up with neurosurgery a referral was also given to urology Return to ED if develop any new or worsening symptoms - Billing Disposition and Condition Condition: GOOD Disposition: Home
[2019-04-26 21:27] LABS: Urine Appearance Cloudy; Urine Bilirubin Negative (Negative); Urine Blood Negative (Negative); Urine Color Yellow; Urine Glucose Negative (Negative); Urine Ketones Negative (Negative); Urine Nitrite Negative (Negative); Urine Protein Negative (Negative); Urine Specific Gravity 1.024 (1.010-1.030); Urine Urobilinogen Negative (Negative)
[2019-04-26] MEDS ORDERED: Cyclobenzaprine TAB* 10 MG PO ONE (22:13)
[2019-04-26 22:38] VITALS: BP 126/76
== END 2019-04-26 22:32 | disposition home or self-care (01) ==
LOC: ED 17:56
DX: M54.9 Dorsalgia, unspecified (principal); R32 Unspecified urinary incontinence
CPT/HCPCS: 36415; 71046; 72148; 80053; 81003; 85025; 86140; 99283; A9270-GY

== ENCOUNTER 2019-06-05 11:09 | Emergency (ER) | payer BC ==
--- OUTSIDE RECORDS SUMMARY | 2019-06-05 11:26 | XMS REPORT | Continuity of Care Document ---
:1990 External Reference #:[id number] Author Name Yevgeniy Herrera D.O. Address [address] [place] [address] Care Team Providers Name Role Phone HCP/LW on file Primary Care Physician Unavailable Payers Date Identification Numbers Payment Provider Subscriber Effective: Policy Number: [id number] [place] Ind/Ppo/Hmo/Pos Remigio Barrett 2018 PayID: [id number] [address] [address] [place] [address] Family History Date Family Member(s) Observation Comments General Alcoholism General Asthma General Diabetes, Nos General Emotional Problems General Mental Illness Social History Type Date Description Comments Sex Unknown Education College BS Marital Status Single Lives With Girlfriend Diet Healthy, Well Balanced 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 Tablets times daily as needed for pain Amphetamine-Dextroamphet 2 by mouth in 90tabs F90.0 Freddy Larios, 01/29 amine the morning, M.D. 5mg Tablets take before work, and 1 mid to later afternoon, for focus/concentra tion Alprazolam XR 1 tab every 15tabs F33.1 Freddy Larios, 10/26/2018 0.5mg Tablets night at [facility] 24HR bedtime, as needed History Medications Amphetamine-Dextroamphetamine 1 tab po bid 60tabs F90.0 Ric, 2018 - 7.5mg Tablets for adhd Sharona [...] Influenza,Unspecified Vital Signs Date Vital Result Comment 05/16/2019 3:16pm BP Systolic 150 mmHg BP Diastolic 80 mmHg Weight 174.00 lb 01/29/2019 1:46pm BP Systolic 128 mmHg BP [...] Date Facility Test Result H/L Range Note CBC Auto Diff 04/26/2019 [facility] White Blood 5.5 10^3/uL Normal 3.5-10.8 [phone] Count Red Blood Count 4.43 10^6/uL Normal 4.18-5.48 Hemoglobin 13.4 g/dL Low 14.0-18.0 Hematocrit 39 % Low 42-52 Mean Corpuscular Volume 88 fL Normal 80-94 Mean Corpuscular Hemoglobin 30 pg Normal 27-31 Mean Corpuscular HGB Conc 35 g/dL Normal 31-36 Red Cell Distribution Width 13 % Normal 10-15 Platelet Count 190 10^3/uL Normal 150-450 Mean Platelet Volume 7.8 fL Normal 7.4-10.4 Abs Neutrophils 3.4 10^3/uL Normal 1.5-7.7 Abs Lymphocytes 1.6 10^3/uL Normal 1.0-4.8 Abs Monocytes 0.4 10^3/uL Normal 0-0.8 Abs Eosinophils 0.1 10^3/uL Normal 0-0.6 Abs Basophils 0.0 10^3/uL Normal 0-0.2 Abs Nucleated RBC 0.0 10^3/uL Granulocyte % 61.6 % Lymphocyte % 29.2 % Monocyte % 7.0 % Eosinophil % 1.7 % Basophil % 0.5 % Nucleated Red Blood Cells % 0.1 Comp Metabolic Panel 04/26/2019 [facility] Sodium 138 mmol/L Normal 135-145 [phone] Potassium 4.4 mmol/L Normal 3.5-5.0 Chloride 105 mmol/L Normal 101-111 Co2 Carbon Dioxide 29 mmol/L Normal 22-32 Anion Gap 4 mmol/L Normal 2-11 Glucose 102 mg/dL High 70-100 Blood Urea Nitrogen 20 mg/dL Normal 6-24 Creatinine 0.99 mg/dL Normal 0.67-1.17 BUN/Creatinine Ratio 20.2 High 8-20 Calcium 9.3 mg/dL Normal 8.6-10.3 Total Protein 6.5 g/dL Normal 6.4-8.9 Albumin 4.3 g/dL Normal 3.2-5.2 Globulin 2.2 g/dL Normal 2-4 Albumin/Globulin Ratio 2.0 Normal 1-3 Total Bilirubin 0.40 mg/dL Normal 0.2-1.0 Alkaline Phosphatase 59 U/L Normal 34-104 Alt 17 U/L Normal 7-52 Ast 16 U/L Normal 13-39 Egfr Non- 91.4 >60 Egfr 110.6 >60 1 Laboratory test 04/26/2019 [facility] C Reactive < 1.00 mg/L Normal < 8.01 finding [phone] Protein Urinalysis 04/26/2019 [facility] Urine Color Yellow Profile [phone] Urine Appearance Cloudy Urine Specific [place] 1.024 Normal 1.010-1.030 Urine pH 6.0 Normal 5-9 Urine Urobilinogen Negative Negative Urine Ketones Negative Negative Urine Protein Negative Negative Urine Leukocytes Negative Negative Urine Blood Negative Negative Urine Nitrite Negative Negative Urine Bilirubin Negative Negative Urine Glucose Negative Negative GC/Chlamydia 04/26/2019 [facility] Chlamydia Negative Negative 2 Amplified Rna [phone] trachomatis Rna Neisseria gonorrhoeae (GC) Rna Negative Negative Poc Urinalysis 04/26/2019 [facility] Poc Glucose, Urine Negative Negative [phone] Poc Bilirubin, Urine Negative Negative Poc Ketone, Urine Negative Negative Poc Specific [place], Urine 1.025 Normal 1.010-1.030 Poc Blood, Urine Negative Negative Poc pH, Urine 6.0 Normal 5-9 Poc Protein, Urine Negative Negative Poc Urobilinogen, Urine 1.0 Negative Poc Nitrite, Urine Negative Negative Poc Leukocytes, Urine Negative Negative Poc Color, Urine Yellow Poc Clarity, Urine Clear 3 Laboratory test 08/01/2018 [facility] [place] Pylori Negative Negative 4, 5 finding [phone] Antigen- Stool Ua Inhouse 07/31/2018 In House Ua Glucose - 6 Ua Bilirubin - Ua Ketones - Ua Specific [place] 1.020 Ua Blood - Ua PH 6.0 Ua Protein - Ua Urobilinogen - Ua Nitrite - Ua Leukocytes tr Laboratory test finding 07/31/2018 In House Hemoglobin 13.9 Glucose 102 Hemoglobin A1c 5.1 Laboratory test finding 07/31/2018 [facility] T3 Free 4.30 pg/mL High 2.5-3.9 [phone] Free T4 (Free Thyroxine) 0.88 ng/dL Normal 0.61-1.12 TSH (Thyroid Stim Horm) 1.24 mcIU/mL Normal 0.34-5.60 Vitamin B12 686 pg/mL Normal 180-914 7 Comp Metabolic Panel 07/31/2018 [facility] Sodium 139 mmol/L Normal 135-145 [phone] Chloride 104 mmol/L Normal 101-111 Co2 Carbon Dioxide 31 mmol/L Normal 22-32 Glucose 89 mg/dL Normal 70-100 Blood Urea Nitrogen 13 mg/dL Normal 6-24 Creatinine 0.89 mg/dL Normal 0.67-1.17 BUN/Creatinine Ratio 14.6 Normal 8-20 Calcium 10.0 mg/dL Normal 8.6-10.3 Total Protein 7.1 g/dL Normal 6.4-8.9 Albumin 4.9 g/dL Normal 3.2-5.2 Globulin 2.2 g/dL Normal 2-4 Albumin/Globulin Ratio 2.2 Normal 1-3 Total Bilirubin 0.50 mg/dL Normal 0.2-1.0 Alkaline Phosphatase 75 U/L Normal 34-104 Alt 27 U/L Normal 7-52 Egfr Non- 103.3 >60 Egfr 125.0 >60 8 Potassium TNP mmol/L 3.5-5.0 9 Anion Gap 4 mmol/L Normal 2-11 Ast TNP U/L 13-39 10 CBC Auto Diff 07/31/2018 [facility] White Blood 6.1 10^3/uL Normal 3.5-10.8 [phone] Count Red Blood Count 5.04 10^6/uL Normal 4.00-5.40 Hemoglobin 15.0 g/dL Normal 14.0-18.0 Hematocrit 44 % Normal 42-52 Mean Corpuscular Volume 88 fL Normal 80-94 Mean Corpuscular Hemoglobin 30 pg Normal 27-31 Mean Corpuscular HGB Conc 34 g/dL Normal 31-36 Red Cell Distribution Width 13 % Normal 10.5-15 Platelet Count 232 10^3/uL Normal 150-450 Mean Platelet Volume 8.0 um3 Normal 7.4-10.4 Abs Neutrophils 3.5 10^3/uL Normal 1.5-7.7 Abs Lymphocytes 1.9 10^3/uL Normal 1.0-4.8 Abs Monocytes 0.5 10^3/uL Normal 0-0.8 Abs Eosinophils 0.2 10^3/uL Normal 0-0.6 Abs Basophils 0 10^3/uL Normal 0-0.2 Abs Nucleated RBC 0 10^3/uL Granulocyte % 56.9 % Normal 38-83 Lymphocyte % 31.9 % Normal 25-47 Monocyte % 7.9 % High 0-7 Eosinophil % 2.9 % Normal 0-6 Basophil % 0.4 % Normal 0-2 Nucleated Red Blood Cells % 0.1 1 Because ethnic data is not always readily [...] 15-29 5 Kidney failure <15 (or dialysis) 2 [id number] 3 Association Executive: [id number] 4 [id number] 5 Test Performed by: [address] [address] 6 void, clear, gold 7 Normal Range 180 to 914 Indeterminate Range 145 to 180 Deficient Range <145 8 Because ethnic data is not always readily [...] 15-29 5 Kidney failure <15 (or dialysis) 9 Specimen Hemolyzed. Result may not be valid. Unable to report test result due to hemolysis. 10 Unable to report test result due to hemolysis. 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 disorder, recurrent, moderate F90.0 Attn-defct hyperactivity disorder, predom inattentive type F43.23 Adjustment disorder with mixed anxiety and depressed mood Office Visit 11/20/2018 10:20a Main Office Lona Vazquez, F43.23 Adjustment disorder P.A. with mixed anxiety [...] htn Office Visit 10/23/2018 10:20a Main Office Tamiko Raygoza3.1 Major depressive P.A. disorder, recurrent, moderate Z87.820 Personal history of traumatic brain injury Office Visit 09/25/2018 9:00a Main Office Tamiko Raygoza3.1 Major depressive P.A. disorder, recurrent, moderate Office Visit 09/11/2018 9:00a Main Office Tamiko Raygoza3.1 Major depressive P.A. disorder, recurrent, moderate Plan of Treatment 01/29/2019 - Lona Columbus, P.A.F33.1 Major depressive disorder, recurrent, moderateFollow up:will be seeing Breanna (?)JOVANI, for neurosensory testing as you plan. Contact [facility] (handed referral letter to pt for info) follow-up with counseling as she recommends need to consider psychiatry which she might recommend. (Pt taking one step at a time.) completed papers for intermittent leave as [id number] Attention-deficit hyperactivity disorder, predominantly inatNew Medication:Amphetamine- Dextroamphetamine 5 mg - 2 by mouth in the morning, take before work, and 1 mid to laterafternoon, for focus/concentrationComments:this seems to be an underlying element to everything, not sure whether past head injury plays role or not.F43.23 Adjustment disorder with mixed anxiety and depressed mood
--- NOTE | 2019-06-05 13:39 | ED ---
Back Pain - HPI Summary HPI Summary: Pt. is a 28 y.o male who presents to the ER for ongoing low back pain with radicular sxs into right leg. Pt. has been following with Dr. Arcos, neurosxs. He had MRI of lumbar spine a few months ago. Pt. states he saw Dr. Arcos on Tuesday and he wanted a MRI of T spine given his ongoing sxs. Pt. states he has been having right low back pain that radiates into right leg with paresthesia and rectal numbness that has been going on for about two months. Pt. denies any injury or worsening sxs. Sxs are mild in severity. No current modifying factors. - History of Current Complaint Chief Complaint: EDBackInjuryPain Stated Complaint: IMAGING OF UPPER BACK PER PT Time Seen by Provider: 06/05/19 12:42 Hx Obtained From: Patient Pain Intensity: 3 - Allergies/Home Medications Allergies/Adverse Reactions: Allergies Allergy/AdvReac Type Severity Reaction Status Date / Time No Known Allergies Allergy Verified 06/05/19 11:19 PMH/Surg Hx/FS Hx/Imm Hx Previously Healthy: Yes Endocrine/Hematology History: Denies: Hx Anticoagulant Therapy, Hx Diabetes, Hx Thyroid Disease Cardiovascular History: Denies: Hx Congestive Heart Failure, Hx Deep Vein Thrombosis, Hx Hypertension , Hx Myocardial Infarction, Hx Pacemaker/ICD Respiratory History: Reports: Hx Asthma - Only as a child. Denies: Hx Chronic Obstructive Pulmonary Disease (COPD), Hx Lung Cancer, Hx Pneumonia, Hx Pulmonary Embolism GI History: Denies: Hx Gall Bladder Disease, Hx Gastrointestinal Bleed, Hx Ulcer, Hx Urosepsis History: Denies: Hx Kidney Stones, Hx Renal Disease Sensory History: Denies: Hx Contacts or Glasses, Hx Hearing Aid Opthamlomology History: Denies: Hx Contacts or Glasses Neurological History: Denies: Hx Dementia, Hx Migraine, Hx Seizures, Hx Transient Ischemic Attacks (TIA) Psychiatric History: Denies: Hx Anxiety, Hx Eating Disorder, Hx Depression, Hx Panic Disorder, Hx Schizophrenia, Hx Bipolar Disorder, Hx of Violent Episodes Against Others - Surgical History Surgery Procedure, Year, and Place: none Infectious Disease History: No Infectious Disease History: Denies: Traveled Outside the [place] in Last 30 Days - Family History Known Family History: Positive: Diabetes, Non-Contributory Negative: Unknown, Cardiac Disease, Hypertension - Social History Occupation: Employed Full-time Lives: With Family Alcohol Use: None Substance Use Type: Reports: Marijuana Smoking Status (MU): Never Smoked Tobacco Have You Smoked in the Last Year: No Review of Systems Constitutional: Negative Negative: Fever, Chills Positive: Other - Low right sided back pain. Skin: Negative Positive: Paresthesia All Other Systems Reviewed And Are Negative: Yes Physical Exam Triage Information Reviewed: Yes Vital Signs On Initial Exam: Initial Vitals Temp Pulse Resp BP Pulse Ox 98.6 F 55 16 130/91 98 06/05/19 11:15 06/05/19 11:15 06/05/19 11:15 06/05/19 11:15 06/05/19 11:15 Vital Signs Reviewed: Yes Appearance: Positive: Well-Appearing - Pt. sitting on chair in NAD. Dad present. Skin: Positive: Warm, Dry Head/Face: Positive: Normal Head/Face Inspection Eyes: Positive: Normal, EOMI Neck: Positive: Supple Musculoskeletal: Positive: Normal, Strength/ROM Intact, Other - 5/5 strength in bilateral LEs. Full strength with flexion and extension. Ambulatory without difficulty. Neurological: Positive: Normal, CN Intact II-III Psychiatric: Positive: Affect/Mood Appropriate Diagnostics - Vital Signs Vital Signs Temp Pulse Resp BP Pulse Ox 06/05/19 11:15 98.6 F 55 16 130/91 98 - Laboratory Lab Statement: Any lab studies that have been ordered have been reviewed, and results considered in the medical decision making process. Back Pain Course/Dx - Course Course Of Treatment: Pt. presenting after referral from neurosxs for MRI of T spine for ongoing radiculopathy. Pt. notes no new deficits or sxs. Dr. Shankar is in the OR but spoke with staff who agreed he wanted MRI. Discussed with Dr. Machado who agrees with MRI today. MRI unavailable until 1700. Pt. does not wish to wait 4 hours and states he called office and they will set him up outpt. for MRI. To return to ER if sxs change or worsen. - Diagnoses Differential Diagnosis/HQI/PQRI: Positive: Herniated Disc, Strain, Sprain Provider Diagnoses: Radiculopathy Discharge - Sign-Out/Discharge Documenting (check all that apply): Patient Departure Patient Received Moderate/Deep Sedation with Procedure: No - Discharge Plan Condition: Good Disposition: HOME Patient Education Materials: Lumbar Radiculopathy (ED) Referrals: Lona Vazquez PA [Primary Care Provider] - Jeffrey Castañeda MD [Medical Doctor] - Additional Instructions: Follow up with neurosurgery as scheduled Return to ER for increased pain, foot drop, bowel or bladder incontinence or retention, or if concerned - Billing Disposition and Condition Condition: GOOD Disposition: Home
[2019-06-05 13:43] VITALS: BP 138/72
== END 2019-06-05 13:42 | disposition home or self-care (01) ==
LOC: ED 11:09
DX: M54.16 Radiculopathy, lumbar region (principal)
CPT/HCPCS: 99281